=== PATIENT | male | born 1990 | race Hispanic/Latino ===

== ENCOUNTER 2023-02-20 23:11 | Emergency (ER) | payer OTHER ==
[2023-02-21] MEDS ORDERED: Boostrix 0.5 ML (Tdap) VIAL (>/=7 yrs of age) ONE (00:39)
== END 2023-02-21 00:41 | disposition home or self-care (01) ==
LOC: ERS 23:11
DX: S61.213A Laceration without foreign body of left middle finger without damage to nail, initial encounter (principal); R55 Syncope and collapse; I10 Essential (primary) hypertension; Y04.8XXA Assault by other bodily force, initial encounter; Z23 Encounter for immunization
CPT/HCPCS: 90471; 90715; 93005